=== PATIENT | female | born 1955 | race Two or more races ===

== ENCOUNTER 2021-06-05 14:24 | Outpatient (CLI) | payer MEDICARE ==
[2021-06-06 00:05] LABS: SARS-CoV-2 PCR by NAA Not Detected (NotDetected)
== END 2021-06-05 14:25 | disposition home or self-care (01) ==
LOC: CSHLAB 14:24
PROVIDERS: ATTEND Internal Medicine Gastroenterology
DX: Z20.822 Contact with and (suspected) exposure to COVID-19 (principal); C18.9 Malignant neoplasm of colon, unspecified; K63.5 Polyp of colon
CPT/HCPCS: U0003; U0005

== ENCOUNTER 2021-09-13 08:42 | Outpatient (CLI) | payer MEDICARE ==
[2021-09-13 19:26] LABS: SARS-CoV-2 PCR by NAA Not Detected (NotDetected)
== END 2021-09-13 08:43 | disposition home or self-care (01) ==
LOC: CSHLAB 08:42
PROVIDERS: ATTEND Internal Medicine Gastroenterology
DX: Z20.822 Contact with and (suspected) exposure to COVID-19 (principal); C18.9 Malignant neoplasm of colon, unspecified; K63.5 Polyp of colon; R10.9 Unspecified abdominal pain
CPT/HCPCS: U0003; U0005

== ENCOUNTER 2021-09-14 08:04 | Day surgery (SDC) | payer MEDICARE ==
[2021-09-12 12:56] VITALS: BMI 30.9
[2021-09-14] MEDS ORDERED: Lidocaine 1% PF 5 ML VIAL ONE (15:50)
== END 2021-09-14 11:40 | disposition home or self-care (01) ==
LOC: CSHSDC 08:04
PROVIDERS: ATTEND Internal Medicine Gastroenterology
PROC: 0DBN8ZZ Excision of Sigmoid Colon, Via Natural or Artificial Opening Endoscopic (ICD-10-PCS; principal; 2021-09-14)
PROC: 0DB68ZZ Excision of Stomach, Via Natural or Artificial Opening Endoscopic (ICD-10-PCS; 2021-09-14)
DX: Z12.11 Encounter for screening for malignant neoplasm of colon (principal); C18.7 Malignant neoplasm of sigmoid colon; D12.8 Benign neoplasm of rectum; K21.00 Gastro-esophageal reflux disease with esophagitis, without bleeding; K31.7 Polyp of stomach and duodenum; K29.70 Gastritis, unspecified, without bleeding; I10 Essential (primary) hypertension; F41.9 Anxiety disorder, unspecified; F32.A Depression, unspecified
CPT/HCPCS: 88305; 88312; 88341; 88342

== ENCOUNTER 2021-11-20 08:37 | Outpatient (CLI) | payer MEDICARE | END 2021-11-20 08:38 | disposition home or self-care (01) | LOC: CSHLAB 08:37 | PROVIDERS: ATTEND Internal Medicine Gastroenterology | DX: Z20.822 Contact with and (suspected) exposure to COVID-19 (principal); K63.5 Polyp of colon; C18.9 Malignant neoplasm of colon, unspecified | CPT/HCPCS: 87811 ==

== ENCOUNTER 2021-11-22 05:38 | Day surgery (SDC) | payer MEDICARE ==
[2021-11-21 10:09] VITALS: BMI 31.0
[2021-11-22] MEDS ORDERED: Lidocaine 1% MPF 2 ML VIAL ONE (06:38)
[2021-11-22] MEDS ORDERED: PROPOFOL 60 ML ONE (07:34)
[2021-11-22] MEDS ORDERED: Lidocaine 2% MPF 10 ML AMP (For Epidural Use) ONE (07:35)
[2021-11-22] MEDS ORDERED: Ondansetron PF 4 MG/2 ML Vial ONE (08:10)
[2021-11-22] MEDS ORDERED: PROPOFOL 20 ML ONE (08:11)
== END 2021-11-22 10:23 | disposition home or self-care (01) ==
LOC: CSHSDC 05:38
PROVIDERS: ATTEND Internal Medicine Gastroenterology
PROC: 0DBP8ZZ Excision of Rectum, Via Natural or Artificial Opening Endoscopic (ICD-10-PCS; principal; 2021-11-22)
PROC: 0DBN8ZZ Excision of Sigmoid Colon, Via Natural or Artificial Opening Endoscopic (ICD-10-PCS; 2021-11-22)
PROC: 3E0H8KZ Introduction of Other Diagnostic Substance into Lower GI, Via Natural or Artificial Opening Endoscopic (ICD-10-PCS; 2021-11-22)
DX: Z12.11 Encounter for screening for malignant neoplasm of colon (principal); C18.7 Malignant neoplasm of sigmoid colon; D12.8 Benign neoplasm of rectum; I10 Essential (primary) hypertension; F41.9 Anxiety disorder, unspecified; F32.A Depression, unspecified; Z86.19 Personal history of other infectious and parasitic diseases; Z20.822 Contact with and (suspected) exposure to COVID-19; Z79.899 Other long term (current) drug therapy; Z90.49 Acquired absence of other specified parts of digestive tract
CPT/HCPCS: 88305; J2405; J2704

== ENCOUNTER 2021-12-07 12:42 | Outpatient (CLI) | payer MEDICARE ==
[~2021-12-07 12:42] MED LIST: Iopamidol 300 61% 100 ML VIAL FS ONE
[2021-12-07 15:19] LABS: Hemoglobin 14.9 g/dL (12.0-15.5); Mean Corpuscular HGB CONC 31.8 g/dL (32.0-36.0); Mean Corpuscular Hemoglobin 28.4 pg (27.0-33.0); Mean Corpuscular Volume 89.3 fl (81.6-98.3); Mean Platelet Volume 10.1 fl (7.4-10.4); Platelet Count 222 10x3/uL (150-450); RBC Distribution Width 13.1 % (11.5-14.5); Red Blood Cell (RBC) Count 5.25 10x6/uL (3.90-5.03); White Blood Cell (WBC) Count 4.2 10x3/uL (3.5-10.5)
[2021-12-07 15:46] LABS: ALT (SGPT) 17 U/L (8-55); AST (SGOT) 27 U/L (5-34); Albumin 4.5 g/dL (3.4-4.8); Alkaline Phosphatase 75 U/L (40-110); Anion Gap 15 mmol/L (10-20); BUN (Urea Nitrogen) 9 mg/dL (9.8-20.1); Bilirubin, Total 0.7 mg/dL (0.2-1.2); Calc. Creatinine Clearance 0 mL/min (70-130); Calcium 9.6 mg/dL (7.8-10.44); Carbon Dioxide 24 mmol/L (23-31); Chloride 103 mmol/L (98-107); Estimated GFR 71; Globulin 4.2 g/dL (2.4-3.5); Glucose 79 mg/dL (80-115); Protein, Total 8.7 g/dL (5.8-8.1); Sodium 138 mmol/L (136-145)
[2021-12-07 16:34] LABS: Lymphocytes 54 % (21-51); MDiff Complete? YES; Neutrophil 35 % (42-75); Reactive Lymphocytes 1 % (0-10)
[2021-12-07 16:35] LABS: Eosinophils 1 % (0-10); Monocytes 8 % (0-10)
[2021-12-07 16:36] LABS: Platelet Morphology Comment Appears Adequate
== END 2021-12-07 12:43 | disposition home or self-care (01) ==
LOC: CSHCT 12:42
PROVIDERS: ATTEND Specialist
DX: Z01.818 Encounter for other preprocedural examination (principal); Z20.822 Contact with and (suspected) exposure to COVID-19; C18.9 Malignant neoplasm of colon, unspecified; K63.9 Disease of intestine, unspecified; Z90.49 Acquired absence of other specified parts of digestive tract
CPT/HCPCS: 71046; 74177; 80053; 82378; 83036; 85025; 87811; 93005; 93010; Q9967